=== PATIENT | female | born 1970 | race Caucasian/White ===

== ENCOUNTER 2017-02-14 13:39 | Emergency (ER) | payer BC ==
[~2017-02-14] VITALS: Ht 182.9 cm; Wt 123.5 kg
[~2017-02-14 13:39] MED LIST: ABILIFY30 MG PO; ASPIR-TRIN325 M1 PO; BIRTHCONTROL; CLONAZEPAM0.5 MG PO; CLONIDINE HCL0.1 MG PO; COGENTIN1 MG PO; CYMBALTA20 MG PO; DOXYCYCLINE HY100 MG PO; FISH OIL SOFTG1 EACH PO; FLEXERIL10 MG PO; GEODON80 MG PO; MOTRIN800 MG PO; ONE-A-DAY WOME1 EAC1 PO; inderal PO
[2017-02-14 15:59] LABS: HEMATOCRIT 37.6 % (36.0-46.0); MCH 30.4 PG (29.0-34.0); MCHC 33.8 G/DL (30.0-36.0); MEAN PLAT.VOLUME 11.1 uM^3 (9.5-12.4); PLATELET COUNT 252 K/uL (156-360); RBC DIS.WIDTH-CV 12.3 % (11.8-14.6); RBC DIS.WIDTH-SD 40.1 % (39-53); RED BLOOD COUNT 4.18 M/uL (3.80-5.20); WHITE BLOOD COUNT 11.2 K/uL (4.1-10.2)
[2017-02-14] MEDS ORDERED: DILAUDID4 MG PO (17:17)
[2017-02-14 17:37] VITALS: BP 149/85
== END 2017-02-14 17:39 | disposition home or self-care (01) ==
LOC: EME 13:39
PROVIDERS: Physician Assistant
DX: M25.551 Pain in right hip (principal); Z88.0 Allergy status to penicillin; Z88.8 Allergy status to other drugs, medicaments and biological substances
CPT/HCPCS: 73502; 85027; 86140; 99281; 99284; J2270